=== PATIENT | female | born 1965 | race Caucasian/White ===

== ENCOUNTER → 2023-07-16 15:59 | Outpatient (REF) | payer BC, SELFPAY | LOC: HWWDC 15:59 | PROVIDERS: ATTENDING PHYSICIAN Family Medicine | DX: Z12.31 Encounter for screening mammogram for malignant neoplasm of breast (principal) | CPT/HCPCS: 77063; 77067 ==

== ENCOUNTER → 2025-01-28 08:28 | Outpatient (REF) | payer BC, SELFPAY | LOC: HWWDC 08:28 | PROVIDERS: ATTENDING PHYSICIAN Family Medicine | DX: Z12.31 Encounter for screening mammogram for malignant neoplasm of breast (principal) | CPT/HCPCS: 77063; 77067 ==